=== PATIENT | female | born 1960 | race Caucasian/White ===

== ENCOUNTER 2019-05-05 08:20 | Day surgery (SDC) | payer BC ==
[2019-05-04 14:52] VITALS: BMI 27.8
[2019-05-05] MEDS ORDERED: MIDAZOLAM HCL 2 MG/2 ML SINGLE DOSE VIAL ONE (10:23)
[2019-05-05] MEDS ORDERED: ROPIVACAINE HCL 0.5% 30ML VIAL ONE (10:23)
[2019-05-05] MEDS ORDERED: ceFAZolin SODIUM 1 GM VIAL ONE (11:06)
[2019-05-05] MEDS ORDERED: DEXAMETHASONE SOD PHOSPHATE 4 MG/1 ML VIAL ONE (11:06)
[2019-05-05] MEDS ORDERED: ONDANSETRON 4 MG/2 ML VIAL ONE (11:06)
[2019-05-05] MEDS ORDERED: SUCCINYLCHOLINE CHLORIDE 200 MG/10 ML VIAL ONE (11:08)
[2019-05-05] MEDS ORDERED: PROPOFOL 20 ML ONE ×2 (11:09)
[2019-05-05] MEDS ORDERED: ONDANSETRON 4 MG/2 ML VIAL IVPUSH PRN (12:57)
[2019-05-05] MEDS ORDERED: ACETAMINOPHEN 325 MG TABLET (FP) PO PRN (12:57)
[2019-05-05] MEDS ORDERED: oxyCODONE HCL 5 MG TABLET PO PRN ×2 (12:57)
[2019-05-05] MEDS ORDERED: LACTATED RINGERS SOLUTION 1,000 ML IV SCH (13:00)
[2019-05-05 13:58] VITALS: BP 118/70; PULSE 60
[2019-05-05 14:00] VITALS: TEMP 98
--- NOTE | 2019-05-06 11:05 | OP ---
DATE OF OPERATION: 05/05/2019 PREOPERATIVE DIAGNOSIS: Left comminuted displaced intraarticular distal radius fracture. POSTOPERATIVE DIAGNOSIS: Left comminuted displaced intraarticular distal radius fracture. OPERATIVE PROCEDURE: Open reduction internal fixation of left displaced distal radius fracture with internal fixation of 3 or more fragments. SURGEON: Birgit Castañeda MD VENDING SERVICE TECHNICIAN: STEVAN Paul ANESTHESIA: Regional. COMPLICATIONS: None. ESTIMATED BLOOD LOSS: Minimal. INDICATIONS FOR PROCEDURE: This is a 59-year-old female with the above finding indicated for operative treatment. Risks, benefits and alternatives were discussed with the patient at length. Proper informed consent was obtained. PROCEDURE: After proper verification of the patient and correct operative site, the patient was brought to the operating room and placed supine on the table, all prominences well-padded. Regional anesthesia was given, sedation was given. Timeout procedure was performed. Intravenous antibiotics were given. The left upper extremity was prepped and draped in the usual sterile fashion. A well-padded tourniquet was placed with sterile prep. Esmarch bandage was used to exsanguinate the left upper extremity. The tourniquet was inflated to 250 mmHg. A longitudinal incision was made over the volar aspect of the wrist in line with the flexor carpi radialis tendon. The incision was taken sharply through the skin, with blunt and sharp dissection through the subcutaneous tissues. The flexor carpi radialis tendon, along with the contents of the carpal canal were bluntly and gently retracted in ulnarward direction for the remainder of the procedure. Pronator quadratus was divided and elevated off the distal radius. The fracture was found to be having intraarticular comminution, which was not visualized on the x-rays and this was reduced. The radial styloid fragment; however, was not reducing properly. Therefore a subperiosteal brachioradialis tenotomy was performed. This allowed full reduction and this was then held with the Acumed Acu-Loc Plate with distal locking screws and proximal non-locking screws bicortical. A distal ulna fracture was also noted but not significantly displaced and did not require fixation. The wrist was taken through a range of motion and there was no instability or loss of motion. She had full pronation, supination and flexion and extension of the wrist. Distal radioulnar joint and scapholunate intervals were found to be stable to clinical examination and radiographs. The wound was irrigated and repaired in layers using 4-0 Vicryl and 4-0 Monocryl. Steri-Strips, sterile dressings were applied. Splint was placed. The patient was reversed from anesthesia and brought to the recovery room in stable condition. She tolerated the procedure well. Dedrick Curiel the contract assistant was integral throughout the procedure. The procedure could not have been performed without a skilled operative contract assistant. BIRGIT CASTAÑEDA M.D. [id number]
== END 2019-05-05 13:50 | disposition home or self-care (01) ==
LOC: FASU 08:20 → EDBD 10:00 → FASU 13:50
PROVIDERS: ATTEND Orthopaedic Surgery Hand Surgery
PROC: 0LN60ZZ Release Left Lower Arm and Wrist Tendon, Open Approach (ICD-10-PCS; 2019-05-05)
PROC: 0PSJ04Z Reposition Left Radius with Internal Fixation Device, Open Approach (ICD-10-PCS; principal; 2019-05-05 11:29)
DX: S52.532A Colles' fracture of left radius, initial encounter for closed fracture (principal); X58.XXXA Exposure to other specified factors, initial encounter; Y93.9 Activity, unspecified; Y92.9 Unspecified place or not applicable
CPT/HCPCS: 25290; 25609; C1713; 73110-TC-LT-FY